=== PATIENT | male | born 1945 | race Caucasian/White ===

== ENCOUNTER 2017-08-08 16:13 | Emergency (ER) | payer MEDICARE, BC ==
[2017-08-08 18:37] LABS: BASOPHILS 0.2 % (0-2); EOSINOPHILS 0.6 % (0-7); HEMATOCRIT 35.6 % (42.0-54.0); HEMOGLOBIN 12.9 g/dL (13.5-17.5); IMMATURE GRANULOCYTES 0.3 % (0-5); LYMPHOCYTES 11.8 % (15-50); MCH 35.4 pg (26.0-34.0); MCHC 36.2 g/dL (31.0-37.0); MCV 97.8 fL (80.0-100.0); MEAN PLATELET VOLUME 9.8 fL (7.4-10.4); MONOCYTES 9.7 % (2-11); NEUTROPHILS 77.4 % (40-80); PLATELET COUNT 151 10x3/uL (130-400); RBC 3.64 10x6/uL (4.20-6.10); RDW 12.8 % (11.5-14.5); WBC 10.5 10x3/uL (4.8-10.8)
[2017-08-08 18:56] LABS: APTT 33.2 SECONDS (22.8-39.4); INR 1.23 (0.85-1.17); PROTIME 15.1 SECONDS (11.6-15.0)
[2017-08-08 19:00] LABS: APPEARANCE CLEAR (CLEAR); COLOR DK YELLOW (YELLOW); SPECIFIC GRAVITY 1.005 (1.005-1.020)
[2017-08-08 19:01] LABS: BILIRUBIN NEGATIVE (NEGATIVE); GLUCOSE NEGATIVE (NEGATIVE); KETONE NEGATIVE (NEGATIVE); NITRITE NEGATIVE (NEGATIVE); PROTEIN NEGATIVE (NEGATIVE); UROBILINOGEN NORMAL (NORMAL)
[2017-08-08 19:04] LABS: ALBUMIN 3.5 g/dL (3.4-5.0); ALKALINE PHOSPHATASE 87 U/L (46-116); ALT (SGPT) 24 U/L (10-68); BILIRUBIN - TOTAL 1.76 mg/dL (0.2-1.3); CALC OSMOLALITY 270 mosm/kg (275-300); CALCIUM 8.9 mg/dL (8.5-10.1); CARBON DIOXIDE 23.3 mmol/L (21.0-32.0); CHLORIDE - SERUM 100 mmol/L (98-107); CREATININE - SERUM 0.7 mg/dL (0.6-1.3); GLUCOSE 113 mg/dL (74-106); POTASSIUM - SERUM 3.4 mmol/L (3.5-5.1); PROTEIN - SERUM 7.2 g/dL (6.4-8.2); SODIUM 134 mmol/L (136-145); UREA NITROGEN 17 mg/dL (7-18); eGFR NON AFRICAN AMERICAN > 90 mL/min (90-120)
== END 2017-08-08 19:41 | disposition other institution (70) ==
LOC: D.ER 16:13
PROVIDERS: Physician Assistant Medical
DX: I63.9 Cerebral infarction, unspecified (principal); W01.0XXA Fall on same level from slipping, tripping and stumbling without subsequent striking against object, initial encounter; Y93.89 Activity, other specified; Y92.019 Unspecified place in single-family (private) house as the place of occurrence of the external cause; F17.200 Nicotine dependence, unspecified, uncomplicated

== ENCOUNTER 2018-02-02 09:36 | Inpatient (IN) | payer MEDICARE, BC ==
[~2018-02-02] VITALS: Ht 177.8 cm; Wt 69.5 kg
[2018-02-02] VITALS (8 sets, daily range): BP systolic 114–146; BP diastolic 70–91; Ht 177.8 cm; Wt 69.5 kg
[2018-02-02] MEDS ORDERED: MORPHINE IMMEDI15 MG PO (09:45)
[2018-02-02] MEDS ORDERED: ZOFRAN4 MG PO (09:45)
[2018-02-02] MEDS ORDERED: DURAGESIC1 PATCH .7 TRANSDERM (09:45)
[2018-02-02] MEDS ORDERED: NEURONTIN 300300 MG PO (09:45)
[2018-02-02] MEDS ORDERED: IBUPROFEN400 MG PO (09:46)
[2018-02-02 10:02] LABS: BASOPHILS 0.3 % (0-2); HEMATOCRIT 46.2 % (42.0-54.0); HEMOGLOBIN 15.8 g/dL (13.5-17.5); IMMATURE GRANULOCYTES 0.3 % (0-5); LYMPHOCYTES 16.5 % (15-50); MCH 35.4 pg (26.0-34.0); MCHC 34.2 g/dL (31.0-37.0); MCV 103.6 fL (80.0-100.0); MONOCYTES 9.8 % (2-11); NEUTROPHILS 72.1 % (40-80); PLATELET COUNT 146 10x3/uL (130-400); RBC 4.46 10x6/uL (4.20-6.10); RDW 15.1 % (11.5-14.5); WBC 7.3 10x3/uL (4.8-10.8)
[2018-02-02 10:17] LABS: APTT 29.9 SECONDS (22.8-39.4); INR 1.36 (0.85-1.17)
[2018-02-02 10:19] LABS: ALBUMIN 2.6 g/dL (3.4-5.0); ALKALINE PHOSPHATASE 186 U/L (46-116); ALT (SGPT) 38 U/L (10-68); BILIRUBIN - TOTAL 2.26 mg/dL (0.2-1.3); CALC OSMOLALITY 275 mosm/kg (275-300); CALCIUM 8.3 mg/dL (8.5-10.1); CARBON DIOXIDE 24.3 mmol/L (21.0-32.0); CHLORIDE - SERUM 99 mmol/L (98-107); CREATININE - SERUM 0.8 mg/dL (0.6-1.3); POTASSIUM - SERUM 3.9 mmol/L (3.5-5.1); PROTEIN - SERUM 6.4 g/dL (6.4-8.2); SODIUM 136 mmol/L (136-145); UREA NITROGEN 9 mg/dL (7-18); eGFR NON AFRICAN AMERICAN > 90 mL/min (90-120)
[2018-02-02 10:24] LABS: GLUCOSE 180 mg/dL (74-106)
[2018-02-02 10:29] LABS: CKMB 1.2 U/L (0.0-3.6); CREATINE KINASE 43 UL (21-232)
[2018-02-02 10:33] LABS: TROPONIN-I < 0.017 ng/mL (0.000-0.060)
[2018-02-02] MEDS ORDERED: KEPPRA500 MG PO (10:53)
[2018-02-03 00:05] VITALS: BP 139/83
[2018-02-03 05:25] VITALS: BP 149/76
[2018-02-03 08:46] VITALS: BP 143/91
[2018-02-03 12:06] VITALS: BP 154/82
[2018-02-03 16:20] VITALS: BP 151/86
== END 2018-02-03 17:18 | disposition home health service (06) | DRG 101 ==
LOC: D.ER 09:36 → D.EDHOLD 11:20 → D.M2 11:20
PROVIDERS: Emergency Medicine
DX: G40.409 Other generalized epilepsy and epileptic syndromes, not intractable, without status epilepticus (principal); C34.90 Malignant neoplasm of unspecified part of unspecified bronchus or lung; C79.31 Secondary malignant neoplasm of brain; F05 Delirium due to known physiological condition

== ENCOUNTER 2018-02-19 06:55 | Inpatient (IN) | payer MEDICARE, BC ==
[~2018-02-19] VITALS: Ht 177.8 cm; Wt 64.5 kg
[2018-02-19] VITALS (7 sets, daily range): BP systolic 67–158; BP diastolic 38–110; Ht 177.8 cm; Wt 64.5 kg
--- NOTE | ~2018-02-19 | HP ---
PATIENT: SWETA GIBSON MEDICAL RECORD: [id number] ACCOUNT: [id number] LOCATION:[id number] : [id number] ADMISSION DATE: 02/19/18 HISTORY AND PHYSICAL EXAMINATION DATE OF ADMISSION: 02/19/2018 CHIEF COMPLAINT: Abdominal pain. HISTORY OF PRESENT ILLNESS: The patient is a 72-year-old gentleman who has had history of having terminal lung cancer with brain mets. He has also had mets to the stomach. He had yesterday developed abdominal pain. He had had nausea. He had vomiting. He presented to the Emergency Room. The patient has also been a patient of hospice. He has refused chemotherapy. It was felt the patient warrants admission. PAST MEDICAL HISTORY: His past history is significant in that he has had long-standing history of having alcoholism. He has had history of having peripheral neuropathy, tobacco dependence, history of impotency, low back pain, BPH, and history of aortic aneurysm. He has had peripheral vascular disease as well as having history of depression. FAMILY HISTORY: Noncontributory. SOCIAL HISTORY: The patient has been self-employed. Four years of college. He is . HABITS: The patient is a moderate alcohol drinker on a daily basis. He smokes one and a half pack of cigarettes a day. He was born in [place], [place]. MEDICATIONS: He has recently placed on a fentanyl patch. He is also on amitriptyline 25 mg p.o. at bedtime, gabapentin 300 mg one t.i.d., ibuprofen 800 mg q. 8 hours p.r.n. pain, and tamsulosin 0.4 mg p.o. daily. ALLERGIES: HE IS ALLERGIC TO IODINE WELL PENICILLIN. REVIEW OF SYSTEMS: Cannot be obtained from the patient. He is hallucinating at the present time. PHYSICAL EXAMINATION: VITAL SIGNS: His temperature is 97.3, his pulse is 122, his respirations are 22, his O2 sat is 92% on room air, and his blood pressure is elevated at 158/100. HEENT: His head is normocephalic. No lesions. Ears; TMs clear. Eyes; pupils are equal, round, and reactive to light. Extraocular movements are intact. His nasal cavity, oral cavity, and oropharynx are clear. NECK: Supple. There is no adenopathy. HEART: Tachycardic. LUNGS: He has decreased breath sounds in all frost. ABDOMEN: Distended. He is diffusely tender. EXTREMITIES: Lower extremities have no edema. In the Emergency Room, the patient had had a chest x-ray. Chest x-ray revealed increased interstitial markings seen at the lung bases. He also had free air under the diaphragm. He had a CT of the abdomen as well as the pelvis which did HISTORY AND PHYSICAL [id number] SCALES,SWETA E reveal numerous findings. Large volume of free air was seen in the abdomen, no clear source of this. Large volume of ascites within the abdomen with slightly hyperdensity for the fluid. Biliary sludge versus small stones seen in the gallbladder. No gallbladder wall thickening is identified. Chronic diverticulosis. No evidence of diverticulitis. Marked hepatic steatosis. Emphysematous changes in the lungs. The patient's white count was 8.6, hemoglobin was 18.1, hematocrit 51.1, and his platelets were 355. His sodium was somewhat low at 134, potassium 3.5, chloride 97, BUN was 8, creatinine 1.4, his glucose was 191. Total bili was elevated at 157 and alkaline phos 181. His urine was unremarkable. ASSESSMENT: 1. Bowel perforation. 2. Large amount of ascites present. 3. History of terminal lung cancer with brain mets. 4. History of COPD. 5. BPH. I discussed with the family I do not feel that the patient is a surgical candidate with his terminal lung cancer as well as severe COPD. It is felt that the patient should be admitted to inpatient hospice care for comfort care only. The patient will be given IV morphine. He is already on Merrem 1 gram q. 8 hours as well as Flagyl 500 mg IV q. 8 hours. He will be placed on Ativan 1 mg every six hours to prevent DTs with his heavy use of alcohol and also given thiamine. Surgical consultation has already been obtained. Dr. Turcios is in agreement and feels like the patient should be admitted to inpatient hospice and is not a surgical candidate. TRANSINT:[id number] Voice Confirmation ID: [id number] DOCUMENT ID: [id number] OMA BORDEN MD at 0715 CC: [id number] DICTATION DATE: 02/19/181829 FLATWORK FINISHER: 02/19/181940 DIS IN 02/20/18 [facility] [address] [place] [address]
--- NOTE | ~2018-02-19 | DS ---
PATIENT:SWETA GIBSON :43 MEDICAL RECORD: [id number] DISCHARGE SUMMARY ADMISSION DATE: 02/19/18 DISCHARGE DATE: 02/20/18 DATE OF ADMISSION: 02/19/2018 DATE OF DISCHARGE: 02/20/2018 CONDITION ON DISCHARGE: Guarded. HOSPITAL COURSE: The patient is a 72-year-old gentleman who had terminal lung cancer, was admitted to the hospital with abdominal pain. He also had brain mets. The patient had mets to the stomach. He had developed abdominal pain 1 day prior to his admission complaining of nausea and vomiting. He had refused chemotherapy. It was felt the patient warranted admission. PHYSICAL EXAMINATION: VITAL SIGNS: His temperature was 97.3, pulse 122, his respirations 22, O2 sat was 92% on room air. His blood pressure elevated 150/100. HEENT: Unremarkable. NEUROLOGIC: The patient was oriented to person but not to place or time. NECK: Supple. There is no adenopathy. HEART: Tachycardic. LUNGS: He had decreased breath sounds in all frost. LABORATORY DATA: In the Emergency Room, the patient's chest x-ray revealed increased interstitial markings. He also had a CT of the abdomen as well as the pelvis, which revealed numerous large volumes of free air under the diaphragm was noted. Large volumes of ascites was noted. Chronic diverticulitis and emphysematous changes in the lungs. The patient had marked hepatic steatosis. It was felt that the patient had a bowel perforation, large amount of ascites. HOSPITAL COURSE: The patient was admitted. He was seen in consultation by Dr. Turcios, did not feel he was a surgical candidate due to his terminal lung cancer with mets and severe COPD, the patient was admitted. This was discussed with the family, they had elected to place the patient on hospice; therefore, the patient was admitted to hospice. TRANSINT:[id number] Voice Confirmation ID: [id number] DOCUMENT ID: [id number] OMA BORDEN MD at 0729 CC: [id number] DICTATION DATE: 03/02/18 1057 CLOCK REPAIR TECHNICIAN: 03/03/18 0139 DIS IN 02/20/18 [facility] [id number] [place] [address]
[~2018-02-19 06:55] MED LIST: DURAGESIC1 PATCH .7 TRANSDERM; IBUPROFEN400 MG PO; KEPPRA500 MG PO; MORPHINE IMMEDI15 MG PO; NEURONTIN 300300 MG PO; ZOFRAN4 MG PO
[2018-02-19] MEDS ORDERED: STOOL SOFTENER100 M1 PO (07:04)
[2018-02-19] MEDS ORDERED: SENNA LAXATIVE8.6 MG (07:05)
[2018-02-19] MEDS ORDERED: ATIVAN1 MG PO (07:06)
[2018-02-19] MEDS ORDERED: FLOMAX0.4 MG PO (07:06)
[2018-02-19 07:38] LABS: BASOPHILS 0.3 % (0-2); EOSINOPHILS 0.1 % (0-7); HEMATOCRIT 51.1 % (42.0-54.0); HEMOGLOBIN 18.1 g/dL (13.5-17.5); IMMATURE GRANULOCYTES 0.6 % (0-5); LYMPHOCYTES 6.6 % (15-50); MCH 36.1 pg (26.0-34.0); MCHC 35.4 g/dL (31.0-37.0); MCV 101.8 fL (80.0-100.0); MEAN PLATELET VOLUME 10.4 fL (7.4-10.4); MONOCYTES 5.1 % (2-11); NEUTROPHILS 87.3 % (40-80); RBC 5.02 10x6/uL (4.20-6.10); RDW 14.8 % (11.5-14.5); WBC 8.6 10x3/uL (4.8-10.8)
[2018-02-19 07:40] LABS: PLATELET COUNT 355 10x3/uL (130-400)
[2018-02-19 07:52] LABS: ALBUMIN 2.4 g/dL (3.4-5.0); ANION GAP 16.6 mmol/L (8-16); BILIRUBIN - TOTAL 1.57 mg/dL (0.2-1.3); CALCIUM 8.4 mg/dL (8.5-10.1); CARBON DIOXIDE 23.9 mmol/L (21.0-32.0); CREATININE - SERUM 1.4 mg/dL (0.6-1.3); POTASSIUM - SERUM 3.5 mmol/L (3.5-5.1); PROTEIN - SERUM 6.6 g/dL (6.4-8.2)
[2018-02-19 09:48] LABS: APPEARANCE CLEAR (CLEAR); BILIRUBIN NEGATIVE (NEGATIVE); COLOR YELLOW (YELLOW); GLUCOSE NEGATIVE (NEGATIVE); KETONE NEGATIVE (NEGATIVE); NITRITE NEGATIVE (NEGATIVE); PROTEIN NEGATIVE (NEGATIVE); SPECIFIC GRAVITY 1.005 (1.005-1.020); UROBILINOGEN NORMAL (NORMAL)
[2018-02-20 00:20] VITALS: BP 137/60
== END 2018-02-20 00:30 | disposition hospice, inpatient (51) | DRG 394 ==
LOC: D.ER 06:55 → D.EDHOLD 12:21 → D.MS 12:26
PROVIDERS: Family Medicine
DX: K63.1 Perforation of intestine (nontraumatic) (principal); R18.8 Other ascites; C34.90 Malignant neoplasm of unspecified part of unspecified bronchus or lung; C79.31 Secondary malignant neoplasm of brain; J44.9 Chronic obstructive pulmonary disease, unspecified; N40.0 Benign prostatic hyperplasia without lower urinary tract symptoms; Z72.89 Other problems related to lifestyle; F17.210 Nicotine dependence, cigarettes, uncomplicated; Z66 Do not resuscitate

== ENCOUNTER 2018-02-20 00:49 | Inpatient (IN) | payer OTHER ==
[~2018-02-20] VITALS: Ht 177.8 cm; Wt 65.9 kg
[~2018-02-20 00:49] MED LIST changes: +ATIVAN1 MG PO; +FLOMAX0.4 MG PO; +SENNA LAXATIVE8.6 MG; +STOOL SOFTENER100 M1 PO
[2018-02-20 04:51] VITALS: BP 67/45; Ht 177.8 cm; Wt 65.9 kg
== END 2018-02-20 10:04 | DRG 951 ==
LOC: D.MS 00:49
DX: Z51.5 Encounter for palliative care (principal)